=== PATIENT | female | born 1955 | race Caucasian/White ===

== ENCOUNTER → 2017-04-19 | Outpatient (REF) | LOC: ZLAB.WCH 20:31 | DX: Z01.89 Encounter for other specified special examinations (principal) ==

== ENCOUNTER → 2018-07-22 | Outpatient (REF) ==
[2018-07-22 17:16] LABS: THYROID STIMULATING HORMONE 3.31 uIU/mL (0.465-4.680)
== END ==
LOC: ZLAB.WCH 16:21
PROVIDERS: Physician Assistant
DX: Z01.89 Encounter for other specified special examinations (principal)

== ENCOUNTER → 2018-10-19 | Outpatient (REF) | LOC: ZLAB.WCH 09:39 | DX: Z01.89 Encounter for other specified special examinations (principal) ==

== ENCOUNTER 2020-12-12 15:23 | Inpatient (IN) | payer MEDICARE ==
[2020-12-12] VITALS (311 sets, daily range): BP systolic 90–100; BP diastolic 51–61; PULSE 83–89; TEMP 98.4–98.6; O2SAT 88–98
[~2020-12-12] VITALS: Ht 154.9 cm; Wt 74.6 kg
[2020-12-12 16:22] LABS: ARTERIAL BLD GAS O2 SATURATION 89.5 % (92-100); ARTERIAL BLD GAS TCO2 CT 15.6; ARTERIAL BLOOD GAS BASE EXCESS -8.9 (-2-2); ARTERIAL BLOOD GAS HCO3 14.8 meq/L (22-26); ARTERIAL BLOOD GAS PCO2 25.8 mmHg (35-45); ARTERIAL BLOOD GAS PO2 59.7 mmHg (80-100); ARTERIAL BLOOD GAS pH 7.38 (7.35-7.45)
[2020-12-12 16:54] LABS: HEMOGLOBIN 10.6 g/dl (12.5-16.0); MEAN CELL VOLUME 90 fl (80.0-100.0); MEAN CORPUSCULAR HEMOGLOBIN 30 pg (27.0-31.0); MEAN CORPUSCULAR HGB CONC 33 g/dl (33.0-37.0); MEAN PLATELET VOLUME 11.7 fl (7.4-10.4); PLATELET COUNT 245 K/mm3 (130-400); RED BLOOD COUNT 3.54 M/mm3 (4.10-5.30); REDCELL DISTRIBUTION WIDTH-CV 14.1 % (11.5-14.5)
[2020-12-12 17:24] LABS: HEMATOCRIT 31.7 % (37.0-47.0)
[2020-12-12 17:26] LABS: ALANINE AMINOTRANSFERASE 38 U/L (4-34); ALBUMIN 3.8 gm/dL (3.5-5.0); ALKALINE PHOSPHATASE 53 U/L (50-136); ANION GAP 12 mmol/L (7-16); AST,SGOT 67 U/L (15-37); BILIRUBIN,TOTAL 0.4 mg/dL (0.0-1.0); BLOOD UREA NITROGEN 82 mg/dL (7-17); C-REACTIVE PROTEIN 6.9 mg/dL (0.0-0.9); CARBON DIOXIDE 20 mmol/L (22-30); CHLORIDE 104 mmol/L (98-107); CREATININE, serum 1.38 (0.52-1.25); GLUCOSE 266 mg/dL (74-106); LACTATE DEHYDROGENASE 1734 U/L (313-618); POTASSIUM 3.8 mmol/L (3.4-5.0); SODIUM 135 mmol/L (137-145); TOTAL PROTEIN 7.4 gm/dL (6.4-8.2)
[2020-12-12 17:54] LABS: BAND 7 % (0-10); LYMPHOCYTE 13 % (20.0-51.0); NEUTROPHILS 76 % (42.0-75.2)
[2020-12-12 17:55] LABS: PLATELET ESTIMATE NORMAL (NORMAL)
[2020-12-12 18:03] LABS: TROPONIN-I < 0.012 ng/mL (0.000-0.035)
--- NOTE | 2020-12-12 19:25 | NUR ---
Received report from SIMA Harrison. Patient resting comfortably in bed. Continues to wear AirVo, receiving 60L, 84%; tolerating well. Christy reports having consulted Dr. Cook for central line placement. Per Christy, Dr. Cook does not feel comfortable placing central line at this time due to prior lovenox administration. All vitals within normal limits. Patient denies any pain or discomfort. Bed in lowest position, call light within in reach, and all alarms are on. No further needs noted.
--- NOTE | 2020-12-12 19:43 | NUR ---
Report given to SIMA Lozada.
--- NOTE | 2020-12-12 19:44 | NUR ---
Report given to SIMA Rios.
[2020-12-12 20:07] LABS: ARTERIAL BLD GAS O2 SATURATION 95.3 % (92-100); ARTERIAL BLD GAS TCO2 CT 18.1; ARTERIAL BLOOD GAS BASE EXCESS -7.8 (-2-2); ARTERIAL BLOOD GAS HCO3 17.1 meq/L (22-26); ARTERIAL BLOOD GAS PCO2 32.5 mmHg (35-45); ARTERIAL BLOOD GAS PO2 84.2 mmHg (80-100); ARTERIAL BLOOD GAS pH 7.34 (7.35-7.45)
[2020-12-13] VITALS (598 sets, daily range): BP systolic 82–117; BP diastolic 48–79; PULSE 80–95; TEMP 98–98.4; O2SAT 85–97
--- NOTE | 2020-12-13 02:21 | NUR ---
This RN contacted Ladan, hospitalistmercy after 0000 regarding patient's downward trending SBPs. Patient's SBPs ranging 70s to low 80s, despite waking patient and adjusting BP cuff. Received orders to administer 1000mL NS over two hours at 500mL/hr. This RN contacted Ladan at approximately 0130 after patient's pressures remained unresponsive to fluids. Received orders to initiate levophed and to confirm plan of care with HORACE. HORACE agrees with levophed administration; requesting second consult to surgery for central line placement now that patient is requiring pressers. Forwarded this information to Harley, who agreed. First call to Dr. Cook at 0207, with no answer. Second call placed at 0228. Dr. Cook stated due to Lovenox administration during prior shift, he would prefer to place a femoral line should bleeding occur and pressure need be applied. Requests I clarify a femoral line with Ladan. Ladan contacted at 0230; she would prefer to avoid a femoral line due to risk of infection. To notify HORACE of plan of care. Dr. Cook notified of decision to use peripheral line until PICC can be placed this morning at 0233. HORACE notified at 0235. Will monitor peripheral site closely.
[2020-12-13 05:14] LABS: HEMOGLOBIN 10.2 g/dl (12.5-16.0); MEAN CELL VOLUME 89 fl (80.0-100.0); MEAN CORPUSCULAR HEMOGLOBIN 30 pg (27.0-31.0); MEAN CORPUSCULAR HGB CONC 33 g/dl (33.0-37.0); MEAN PLATELET VOLUME 11.4 fl (7.4-10.4); PLATELET COUNT 275 K/mm3 (130-400); RED BLOOD COUNT 3.43 M/mm3 (4.10-5.30); REDCELL DISTRIBUTION WIDTH-CV 14.2 % (11.5-14.5)
[2020-12-13 05:20] LABS: HEMATOCRIT 30.5 % (37.0-47.0)
[2020-12-13 05:25] LABS: CALCIUM 8.5 mg/dL (8.4-10.2); CREATININE, serum 0.96 (0.52-1.25); POTASSIUM 3.9 mmol/L (3.4-5.0)
[2020-12-13 06:02] LABS: BAND 6 % (0-10); LYMPHOCYTE 17 % (20.0-51.0); NEUTROPHILS 75 % (42.0-75.2); PLATELET ESTIMATE NORMAL (NORMAL)
--- NOTE | 2020-12-13 07:00 | NUR ---
PT ON AIRVO SATING LOW 90'S. PT RESTING COMFORTABLE. VSS. PT ON LOW DOSE LEVO. WILL CONTINUE TO MONTIOR.
--- NOTE | 2020-12-13 08:43 | NUR ---
PT'S MAXWELL CALLED AND UPDATED ON PT.
[2020-12-13 08:55] LABS: PATHOLOGY DIFF REVIEW OK
--- NOTE | 2020-12-13 10:28 | NUR ---
CALLED THIS RN AND PATIENT DISCUSSED. CHARLES RN WITH CALLED AND STATED THEY ARE AWARE OF CONSULT.
[2020-12-13 16:21] LABS: AMORPHOUS CRYSTAL Present /uL; MUCOUS Present /lpf; PH 5 (5-8); SQUAMOUS EPITHELIAL 0-2 /hpf; URINE APPEARANCE Hazy; URINE BACTERIA None Seen /hpf; URINE BILIRUBIN Negative (NEGATIVE); URINE BLOOD 1+ (NEGATIVE); URINE COLOR Yellow; URINE GLUCOSE 1+ (NEGATIVE); URINE KETONE Trace (NEGATIVE); URINE LEUKOCYTE ESTERASE Negative (NEGATIVE); URINE NITRATE Negative (NEGATIVE); URINE PROTEIN(semi-quant) 2+ (NEGATIVE); URINE UROBILINOGEN Negative (NEGATIVE)
--- NOTE | 2020-12-13 16:25 | NUR ---
The patient is COVID positive. SW attempted to contact the patient's room phone to discuss discharge plan. The patient did not answer. SW contacted the patient's , Myron (ph#[phone]), to complete intake. The patient lives in [place] with Myron. Myron reports that the patient is independent with ADLs and does not have any DME. The patient's primary care provider is LEILA Sanders and she receives her medications from [facility]. Myron reports no difficulties obtaining her meds. Myron reports that he does not believe that the patient has a DPOA-HC. The patient is currently on 60 liters of oxygen, via high flow cannula. SW to continue to follow.
[2020-12-13 16:29] LABS: COLLECTION METHOD CATHETER
[2020-12-14] VITALS (1046 sets, daily range): BP systolic 84–127; BP diastolic 55–78; PULSE 69–98; TEMP 98–98.5; O2SAT 73–100
[2020-12-14 04:04] LABS: MEAN CELL VOLUME 88 fl (80.0-100.0); MEAN CORPUSCULAR HGB CONC 33 g/dl (33.0-37.0); MEAN PLATELET VOLUME 11.4 fl (7.4-10.4); PLATELET COUNT 319 K/mm3 (130-400); REDCELL DISTRIBUTION WIDTH-CV 14.3 % (11.5-14.5)
[2020-12-14 04:11] LABS: HEMATOCRIT 28.2 % (37.0-47.0); HEMOGLOBIN 9.4 g/dl (12.5-16.0); MEAN CORPUSCULAR HEMOGLOBIN 29 pg (27.0-31.0)
[2020-12-14 04:22] LABS: CALCIUM 9.2 mg/dL (8.4-10.2); CREATININE, serum 0.82 (0.52-1.25); POTASSIUM 3.4 mmol/L (3.4-5.0)
[2020-12-14 05:21] LABS: LYMPHOCYTE 13 % (20.0-51.0); NEUTROPHILS 80 % (42.0-75.2); PLATELET ESTIMATE NORMAL (NORMAL)
[2020-12-14 05:49] LABS: ARTERIAL BLD GAS O2 SATURATION 86.7 % (92-100); ARTERIAL BLD GAS TCO2 CT 23.3; ARTERIAL BLOOD GAS BASE EXCESS -0.7 (-2-2); ARTERIAL BLOOD GAS HCO3 22.3 meq/L (22-26); ARTERIAL BLOOD GAS PCO2 30.7 mmHg (35-45); ARTERIAL BLOOD GAS PO2 49.3 mmHg (80-100); ARTERIAL BLOOD GAS pH 7.48 (7.35-7.45)
--- NOTE | 2020-12-14 07:00 | NUR ---
PT RESTING IN BED ON AIRVO. PT'S VSS. WILL CONTINUE TO MONITOR.
[2020-12-14] MEDS ORDERED: LOPID 600M600 MG/TAB PO (15:42)
[2020-12-14] MEDS ORDERED: CRESTOR20 MG PO (15:43)
[2020-12-14] MEDS ORDERED: LOTENSIN20 MG PO (15:44)
[2020-12-14] MEDS ORDERED: GLUCOPHAGE500 MG/TAB PO (15:44)
[2020-12-14] MEDS ORDERED: HCTZ 25MG TAB25 MG PO (15:45)
[2020-12-14] MEDS ORDERED: LOPRESSOR 550 MG/TAB PO (15:45)
[2020-12-14 15:47] LABS: ARTERIAL BLD GAS O2 SATURATION 98.5 % (92-100); ARTERIAL BLD GAS TCO2 CT 23.4; ARTERIAL BLOOD GAS BASE EXCESS -1.3 (-2-2); ARTERIAL BLOOD GAS HCO3 22.4 meq/L (22-26); ARTERIAL BLOOD GAS PCO2 33.9 mmHg (35-45); ARTERIAL BLOOD GAS pH 7.44 (7.35-7.45)
[2020-12-14 15:48] LABS: ARTERIAL BLOOD GAS PO2 143.6 mmHg (80-100)
[2020-12-15] VITALS (997 sets, daily range): BP systolic 123–140; BP diastolic 75–81; PULSE 78–94; TEMP 97.5–98.4; O2SAT 58–100
[2020-12-15 04:01] LABS: MEAN CELL VOLUME 89 fl (80.0-100.0); MEAN CORPUSCULAR HGB CONC 33 g/dl (33.0-37.0); MEAN PLATELET VOLUME 11.1 fl (7.4-10.4); PLATELET COUNT 359 K/mm3 (130-400); RED BLOOD COUNT 3.14 M/mm3 (4.10-5.30); REDCELL DISTRIBUTION WIDTH-CV 14.4 % (11.5-14.5)
[2020-12-15 04:06] LABS: HEMOGLOBIN 9.2 g/dl (12.5-16.0); MEAN CORPUSCULAR HEMOGLOBIN 29 pg (27.0-31.0)
[2020-12-15 04:12] LABS: CALCIUM 8.8 mg/dL (8.4-10.2); CREATININE, serum 0.85 (0.52-1.25); POTASSIUM 3.2 mmol/L (3.4-5.0)
[2020-12-15 04:31] LABS: MAGNESIUM 1.6 mg/dL (1.6-2.3)
[2020-12-15 04:37] LABS: BAND 1 % (0-10); LYMPHOCYTE 7 % (20.0-51.0); METAMYELOCYTE 2 % (0-0); MYELOCYTE 1 % (0-0); NEUTROPHILS 85 % (42.0-75.2); PLATELET ESTIMATE NORMAL (NORMAL)
[2020-12-15 06:06] LABS: ARTERIAL BLD GAS O2 SATURATION 97.5 % (92-100); ARTERIAL BLD GAS TCO2 CT 23.6; ARTERIAL BLOOD GAS BASE EXCESS -0.1 (-2-2); ARTERIAL BLOOD GAS HCO3 22.7 meq/L (22-26); ARTERIAL BLOOD GAS PCO2 30.9 mmHg (35-45); ARTERIAL BLOOD GAS PO2 99.1 mmHg (80-100); ARTERIAL BLOOD GAS pH 7.48 (7.35-7.45)
--- NOTE | 2020-12-15 07:00 | NUR ---
PT RESTING WITH BIPAP ON. PTS VSS. WILL CONTINUE TO MONTIOR.
[2020-12-16] VITALS (594 sets, daily range): BP systolic 115–148; BP diastolic 84–93; PULSE 70–102; TEMP 97.5–98.6; O2SAT 61–100
[2020-12-16 04:49] LABS: MEAN CELL VOLUME 90 fl (80.0-100.0); MEAN CORPUSCULAR HGB CONC 33 g/dl (33.0-37.0); MEAN PLATELET VOLUME 10.9 fl (7.4-10.4); PLATELET COUNT 303 K/mm3 (130-400); RED BLOOD COUNT 3.22 M/mm3 (4.10-5.30); REDCELL DISTRIBUTION WIDTH-CV 14.2 % (11.5-14.5)
[2020-12-16 04:56] LABS: HEMATOCRIT 28.9 % (37.0-47.0); HEMOGLOBIN 9.5 g/dl (12.5-16.0); MEAN CORPUSCULAR HEMOGLOBIN 30 pg (27.0-31.0)
[2020-12-16 05:00] LABS: C-REACTIVE PROTEIN 2.6 mg/dL (0.0-0.9); CALCIUM 8.8 mg/dL (8.4-10.2); CREATININE, serum 0.66 (0.52-1.25); POTASSIUM 3.7 mmol/L (3.4-5.0)
[2020-12-16 05:45] LABS: BAND 2 % (0-10); LYMPHOCYTE 10 % (20.0-51.0); MYELOCYTE 1 % (0-0); NEUTROPHILS 82 % (42.0-75.2); PLATELET ESTIMATE NORMAL (NORMAL)
[2020-12-16 06:06] LABS: ARTERIAL BLD GAS O2 SATURATION 98.6 % (92-100); ARTERIAL BLD GAS TCO2 CT 22.6; ARTERIAL BLOOD GAS BASE EXCESS -1.5 (-2-2); ARTERIAL BLOOD GAS HCO3 21.7 meq/L (22-26); ARTERIAL BLOOD GAS PCO2 31.3 mmHg (35-45); ARTERIAL BLOOD GAS pH 7.46 (7.35-7.45)
[2020-12-16 06:10] LABS: ARTERIAL BLOOD GAS PO2 138.3 mmHg (80-100)
--- NOTE | 2020-12-16 15:32 | NUR ---
cemetery worker spoke with Dr Phelps, who had visited with patient about [facility] transfer in the future. Worker contacted patient's spouse, Myron, and per his request, spoke with Marleny #[phone], daughter in law that is a nurse. Worker provided education about [facility] and answered their questions. Worker collaborated with patient's nurse regarding the above information.
--- NOTE | 2020-12-16 18:49 | NUR ---
PT had an uneventful day. PT denied appetite all day did eat some of breakfast, two bites of apple sauce at lunch and attempting to eat dinner at this time. No complaints of pain. Afebrile. Will report to SOFIA GAO.
--- NOTE | 2020-12-16 19:20 | NUR ---
Received report from SIMA Harrison.
--- NOTE | 2020-12-16 19:22 | NUR ---
PT report given to SIMA Lozada.
--- NOTE | 2020-12-16 20:15 | NUR ---
Patient resting quietly in bed. Patient wearing AirVo at this time, tolerating well. Receiving 60L and 80% FiO2. All vitals within normal limits. Patient denies any pain or discomfort; she denies having an appetite or wanting anything to eat or snack on. No further needs noted at this time.
[2020-12-17] VITALS (297 sets, daily range): BP systolic 88–138; BP diastolic 69–85; PULSE 91–108; TEMP 98.3–99.1; O2SAT 67–100
[2020-12-17 05:16] LABS: CALCIUM 8.8 mg/dL (8.4-10.2); CREATININE, serum 0.64 (0.52-1.25); POTASSIUM 3.8 mmol/L (3.4-5.0)
[2020-12-17 05:26] LABS: HEMOGLOBIN 10.2 g/dl (12.5-16.0); MEAN CELL VOLUME 90 fl (80.0-100.0); MEAN CORPUSCULAR HEMOGLOBIN 30 pg (27.0-31.0); MEAN CORPUSCULAR HGB CONC 33 g/dl (33.0-37.0); MEAN PLATELET VOLUME 11.1 fl (7.4-10.4); RED BLOOD COUNT 3.38 M/mm3 (4.10-5.30); REDCELL DISTRIBUTION WIDTH-CV 13.9 % (11.5-14.5)
[2020-12-17 05:33] LABS: HEMATOCRIT 30.5 % (37.0-47.0)
[2020-12-17 05:35] LABS: PLATELET COUNT 173 K/mm3 (130-400)
[2020-12-17 05:48] LABS: ARTERIAL BLD GAS O2 SATURATION 98.8 % (92-100); ARTERIAL BLD GAS TCO2 CT 20.9; ARTERIAL BLOOD GAS BASE EXCESS -1.1 (-2-2); ARTERIAL BLOOD GAS HCO3 20.2 meq/L (22-26); ARTERIAL BLOOD GAS PCO2 24.5 mmHg (35-45); ARTERIAL BLOOD GAS pH 7.53 (7.35-7.45)
[2020-12-17 06:07] LABS: LYMPHOCYTE 10 % (20.0-51.0); NEUTROPHILS 87 % (42.0-75.2); PLATELET ESTIMATE NORMAL (NORMAL)
--- NOTE | 2020-12-17 12:01 | NUR ---
Report given to SIMA Reeves at 1136- PT off floor at 1201. PT transported via wheelchair to room 302. PT able to stand and turn with assist of two. PT is comfortable in bed. Care relinquished at this time.
--- NOTE | 2020-12-17 15:14 | NUR ---
Hand Expansion Envelope Maker contacted Rajesh at [facility] and faxed clinical updates. Rajesh advised he has attempted to contact patient's family and left a message. SW attempted to contact patient by both room phone and cell phone, however patient did not answer.
--- NOTE | 2020-12-17 22:30 | NUR ---
ALERT AND OX4. PT LYING IN BED. DENIES SOA, CHEST PAIN OR DIZZY. DOES GET EXCERTED AND SOA W ACTIVITY. RT UPPER ARM FLUSHED, GOOD BLOOD RETURN PICC. BIPAP AT HS. PM MEDS GIVEN. POC DISCUSSED. NEEDS MET.
[2020-12-18 05:36] VITALS: BP 136/70; PULSE 100; TEMP 98.6
--- NOTE | 2020-12-18 05:52 | NUR ---
PT SLEPT THROUGH THE NIGHT W BIPAP ON WITHOUT INCIDENT. AM LABS DRAWN W PICC. NEEDS MET.
[2020-12-18 06:50] LABS: MEAN CELL VOLUME 90 fl (80.0-100.0); MEAN CORPUSCULAR HEMOGLOBIN 30 pg (27.0-31.0); MEAN CORPUSCULAR HGB CONC 33 g/dl (33.0-37.0); MEAN PLATELET VOLUME 11.6 fl (7.4-10.4); PLATELET COUNT 127 K/mm3 (130-400); RED BLOOD COUNT 3.36 M/mm3 (4.10-5.30); REDCELL DISTRIBUTION WIDTH-CV 13.8 % (11.5-14.5)
[2020-12-18 06:52] LABS: HEMATOCRIT 30.2 % (37.0-47.0)
[2020-12-18 07:03] LABS: CALCIUM 8.8 mg/dL (8.4-10.2); CREATININE, serum 0.67 (0.52-1.25); POTASSIUM 3.7 mmol/L (3.4-5.0)
[2020-12-18 08:15] LABS: LYMPHOCYTE 8 % (20.0-51.0); METAMYELOCYTE 1 % (0-0); NEUTROPHILS 89 % (42.0-75.2); PLATELET ESTIMATE DECREASED (NORMAL)
[2020-12-18 08:16] LABS: HYPOCHROMIA 1+
[2020-12-18 08:30] VITALS: BP 126/78; PULSE 10; TEMP 98.1
--- NOTE | 2020-12-18 08:47 | NUR ---
Pt awake and alert upon entry, dyspnea at rest noted, saturating at 88-91% @ 60 lpm. No C/O pain at this time. Shift assessment complete, left Pt in bed, lowest position, call light in reach.
--- NOTE | 2020-12-18 11:17 | NUR ---
During clinical rounds, Dr. Glover advised that he spoke with patient about discharge to [facility] and she was in agreement. Discharge Plan: [facility]
[2020-12-18 13:21] VITALS: BP 142/72; PULSE 94; TEMP 97.8
--- NOTE | 2020-12-18 13:27 | NUR ---
The patient is Covid-19 positive. She transferred to this floor from the ICU floor. Fish And Wildlife Warden attempted to contact the patient via phone, left message. SW contacted the patient's , Myron to introduce oneself and discuss the discharge plan. *Discharge disposition: [facility]
[2020-12-18 17:30] VITALS: BP 137/85; PULSE 98; TEMP 98
[2020-12-18 20:40] VITALS: BP 118/66; PULSE 82; TEMP 98.2
--- NOTE | 2020-12-18 23:46 | NUR ---
ALERT AND OX4. HAVING BACK PAIN TONIGHT RATING 8/10. TRAMDOL GIVEN ALONG W PM MEDS. PICC LINE FLUSHED W GOOD BLOOD RETURN. VITALS, BLOOD SUGAR. RT CALLED FOR BIPAP. FRESH ICE WATER, CELL PHONE APPLICATION TECHNICIAN AND UPDATE DAUGHTER ON PT STATUS. POC DISCUSSED, CALL LIGHT WI REACH. NEEDS MET.
[2020-12-19] VITALS (7 sets, daily range): BP systolic 123–137; BP diastolic 67–79; PULSE 77–95; TEMP 97.9–98.4
[2020-12-19 06:21] LABS: MEAN CELL VOLUME 90 fl (80.0-100.0); MEAN CORPUSCULAR HGB CONC 33 g/dl (33.0-37.0); MEAN PLATELET VOLUME 12.3 fl (7.4-10.4); PLATELET COUNT 102 K/mm3 (130-400); RED BLOOD COUNT 3.14 M/mm3 (4.10-5.30); REDCELL DISTRIBUTION WIDTH-CV 13.8 % (11.5-14.5)
[2020-12-19 06:28] LABS: HEMATOCRIT 28.1 % (37.0-47.0); HEMOGLOBIN 9.3 g/dl (12.5-16.0); MEAN CORPUSCULAR HEMOGLOBIN 30 pg (27.0-31.0)
[2020-12-19 06:31] LABS: CALCIUM 8.3 mg/dL (8.4-10.2); CREATININE, serum 0.6 (0.52-1.25); POTASSIUM 3.9 mmol/L (3.4-5.0)
[2020-12-19 06:57] LABS: BAND 7 % (0-10); LYMPHOCYTE 3 % (20.0-51.0); NEUTROPHILS 84 % (42.0-75.2)
[2020-12-19 07:00] LABS: PLATELET ESTIMATE NORMAL (NORMAL)
--- NOTE | 2020-12-19 09:56 | NUR ---
Pt awake upon entry, currently on BiPAP with respiratory in room, Medications given with RT assist. Shift assessments complete, left Pt in bed, call light in reach.
[2020-12-19 12:11] LABS: ARTERIAL BLOOD GAS BASE EXCESS 2.6 (-2-2); ARTERIAL BLOOD GAS HCO3 25.9 meq/L (22-26); ARTERIAL BLOOD GAS PCO2 35.7 mmHg (35-45); ARTERIAL BLOOD GAS PO2 65.9 mmHg (80-100); ARTERIAL BLOOD GAS pH 7.48 (7.35-7.45)
--- NOTE | 2020-12-19 15:17 | NUR ---
Rajesh with [facility] was hospital to visit. He discussed patient care with the patient's nurse. *Discharge disposition: [facility]
[2020-12-19 18:50] LABS: ARTERIAL BLD GAS O2 SATURATION 96.6 % (92-100); ARTERIAL BLOOD GAS BASE EXCESS 0.8 (-2-2); ARTERIAL BLOOD GAS PCO2 33.2 mmHg (35-45); ARTERIAL BLOOD GAS PO2 84.5 mmHg (80-100); ARTERIAL BLOOD GAS pH 7.48 (7.35-7.45)
--- NOTE | 2020-12-19 19:36 | NUR ---
DARIEL DEE NOTIFED OF RECENT ABG, HAD ALREADY REVIEWED AND IMPROVED WANTS TO KEEP HER ON BIPAP ALL NIGHT. NOTED
--- NOTE | 2020-12-19 22:00 | NUR ---
ALERT AND OX4. BIPAP ON CONTINUOUS OVERNIGHT. PM MED GIVEN TRAMDOL AND IV MED. PICC LINE FLUSHED GOOD BLOOD RETURN. O2 SAT 95-96%. VSS, BLOOD SUGAR TX. ICE WATER REFILL. CALL LIGHT WI REACH. NEEDS MET .
--- NOTE | 2020-12-19 22:54 | NUR ---
GAVE PT DAUGHTER UPDATE ON PT STATUS.
--- NOTE | 2020-12-20 02:06 | NUR ---
Pt resting quietly in bed w eyes closed, remains on bipap resp even and unlabored.
[2020-12-20 03:29] VITALS: BP 133/75; PULSE 82; TEMP 97.5
--- NOTE | 2020-12-20 05:55 | NUR ---
RESTED THROUGH THE NIGHT ON BIPAP WITHOUT INCIDENT. DENIES FEELING SOA. VSS. BLOOD SUGARS OBTAINED PER ORDER. PICC LINE LAB DRAW THIS AM.
[2020-12-20 07:00] LABS: MEAN CELL VOLUME 92 fl (80.0-100.0); MEAN CORPUSCULAR HGB CONC 32 g/dl (33.0-37.0); MEAN PLATELET VOLUME 12.7 fl (7.4-10.4); PLATELET COUNT 104 K/mm3 (130-400); RED BLOOD COUNT 3.26 M/mm3 (4.10-5.30); REDCELL DISTRIBUTION WIDTH-CV 13.7 % (11.5-14.5)
[2020-12-20 07:13] LABS: HEMOGLOBIN 9.7 g/dl (12.5-16.0); MEAN CORPUSCULAR HEMOGLOBIN 30 pg (27.0-31.0)
[2020-12-20 07:18] LABS: CALCIUM 8.7 mg/dL (8.4-10.2); CREATININE, serum 0.63 (0.52-1.25); POTASSIUM 4.5 mmol/L (3.4-5.0)
[2020-12-20 08:21] LABS: BAND 1 % (0-10); BASOPHIL 1 % (0-2); LYMPHOCYTE 3 % (20.0-51.0); METAMYELOCYTE 1 % (0-0); NEUTROPHILS 92 % (42.0-75.2); PLATELET ESTIMATE DECREASED (NORMAL)
[2020-12-20 08:54] VITALS: BP 140/73; PULSE 90; TEMP 97.7
--- NOTE | 2020-12-20 09:26 | NUR ---
Pt awake upon entry, currently on BiPAP. no C/O pain at this time. Shift assessment complete, left Pt call light in reach.
[2020-12-20 12:23] VITALS: BP 145/76; PULSE 87; TEMP 97.8
[2020-12-20 17:52] VITALS: BP 146/77; PULSE 92; TEMP 98.3
[2020-12-20 20:13] VITALS: BP 135/63; PULSE 100; TEMP 99
--- NOTE | 2020-12-20 21:00 | NUR ---
PATIENT IS RESTING IN THE ROOM.AOX4.ON AIRVO 60L.REPORTED OF PAIN.MEDS GIVEN PER ORDER.REQUESTED FOR ICE WATER SAME GIVEN.NO OTHER NEEDS AT THIS TIME.
[2020-12-20 23:46] VITALS: BP 134/68; PULSE 94; TEMP 98.3
[2020-12-21] VITALS (161 sets, daily range): BP systolic 97–155; BP diastolic 75–90; PULSE 86–116; TEMP 97.7–98.9; O2SAT 45–100
[2020-12-21 05:49] LABS: ARTERIAL BLD GAS O2 SATURATION 91.8 % (92-100); ARTERIAL BLD GAS TCO2 CT 25.3; ARTERIAL BLOOD GAS BASE EXCESS 0.1 (-2-2); ARTERIAL BLOOD GAS HCO3 24.2 meq/L (22-26); ARTERIAL BLOOD GAS PO2 63.3 mmHg (80-100); ARTERIAL BLOOD GAS pH 7.43 (7.35-7.45)
--- NOTE | 2020-12-21 06:23 | NUR ---
PATIENT HAD A RESTFUL NIGHT ONN BIPAP.O2 SATS ABOVE 90%.DENIES PAIN.NO OTHER NEEDS AT THIS TIME.
[2020-12-21 07:33] LABS: CALCIUM 8.6 mg/dL (8.4-10.2); CREATININE, serum 0.61 (0.52-1.25); POTASSIUM 4.2 mmol/L (3.4-5.0)
[2020-12-21 07:35] LABS: HEMOGLOBIN 10.4 g/dl (12.5-16.0); MEAN CELL VOLUME 91 fl (80.0-100.0); MEAN CORPUSCULAR HEMOGLOBIN 29 pg (27.0-31.0); MEAN CORPUSCULAR HGB CONC 32 g/dl (33.0-37.0); PLATELET COUNT 117 K/mm3 (130-400); RED BLOOD COUNT 3.55 M/mm3 (4.10-5.30); REDCELL DISTRIBUTION WIDTH-CV 13.4 % (11.5-14.5)
[2020-12-21 07:37] LABS: HEMATOCRIT 32.4 % (37.0-47.0)
--- NOTE | 2020-12-21 09:34 | NUR ---
PATIENT ASSESSMENT COMPLETED. SHE HAS A VERY RUNNY NOSE AND SOME SHORTNESS OF BREATH AT REST. [place] INTACT AND NO URGE TO HAVE A BM. AIRVO INPLACE AND TOLERATING. SHE IS ORDERING BREAKFAST NOW
[2020-12-21 10:08] LABS: BAND 1 % (0-10); LYMPHOCYTE 2 % (20.0-51.0); METAMYELOCYTE 1 % (0-0); NEUTROPHILS 95 % (42.0-75.2)
[2020-12-21 10:10] LABS: ANISOCYTOSIS 1+; PLATELET ESTIMATE DECREASED (NORMAL)
[2020-12-21 10:11] LABS: POLYCHROMASIA 1+
--- NOTE | 2020-12-21 18:08 | NUR ---
PATIENT CALLS OUT IN TERRIBLE LOW BACK PAIN. SHE IS REPOSITIONED IN THE BED AND ULTRAM X1 PROVIDED PO. I WILL CALL TO SEE IF THERE IS SOMETHING ELSE TO TRY ALSO. HEAT PAD WILL BE GIVEN
--- NOTE | 2020-12-21 19:18 | NUR ---
NOTIFIED CHARLI EASLEY HOSPITALIST OF AN UPDATE ON PATIENT. SHE IS ANXIOUS AND O2 SAT RANGING FROM 85-88% SHE DID GET UP TO 90% FOR A BRIEF MOMENT THEN WENT BACK DOWN. HEAD OF BED ALL THE WAY UP RT IS NOTIFIED AND HAS ARRIVED. HR IN 110'S. SHE STATES THAT SHE JUST CAN'T BREATH, 1MG IVP MORPHINE WAS GIVEN PER ORDERS.
--- NOTE | 2020-12-21 19:38 | NUR ---
PATIENT WAS GIVEN ANOTHER 1 MG IVP MORPHINE AT THIS TIME PER CHARLI ORDERS
--- NOTE | 2020-12-21 19:40 | NUR ---
Patient was having shortness of breath. She was at airvo during shift change and SPO2 at 85%. Yulissa of RT was called and adjusted the settings of airvo but patient still having difficulty of breathing. Bipap was placed and Ines DEE came in to see the patient. She is still complaining of low back pain and Tia GAO gave another dose of Morphine. Ines ordered to have the patient trasnferred to ICU for further monitoring.
--- NOTE | 2020-12-21 20:17 | NUR ---
Report given to Hai GAO.
--- NOTE | 2020-12-21 20:50 | NUR ---
Pt arrived to ICU room 4 via bed with divya Reynolds RN. Pt transferred from the floor bed to the ICU bed with the assistance of 3. Attempted to orient pt to room but she is visibly in distress. BiPAP in place. LEILA Chacon, notified of arrival to ICU. Call light within reach.
--- NOTE | 2020-12-21 21:05 | NUR ---
Patient transferred to ICU.
[2020-12-22] VITALS (210 sets, daily range): BP systolic 52–103; BP diastolic 25–80; PULSE 72–104; TEMP 97.5; O2SAT 30–100
--- NOTE | 2020-12-22 03:00 | NUR ---
ATTEMPTED; UNABLE TO OBTAIN ABG SPECIMEN AFTER VENTILAROR WAS APPLIED TO PT. BPs NOT STABLE WELL.
--- NOTE | 2020-12-22 05:03 | NUR ---
Contacted [facility] and spoke with Nica. Patient is not a candidate for donation at this time due to Covid-19. Referral #[id number]
--- NOTE | 2020-12-22 05:31 | NUR ---
Contacted [facility] [employer] in [place], [place] per family request. ([phone])
--- NOTE | 2020-12-22 06:13 | NUR ---
0000 - PT BP CUFF READ 52/36. ENTERED ROOM TO RE-CYCLE BP. 0010 - BP 87/28. CONTACTED LEILA AUGUSTIN, TO REPORT LOW BP. ORDER FOR PHENYLEPHERINE RECEIVED. 0100 - PT BEGAN TO DESAT ON THE MONITOR. UPON ENTERING ROOM PT HAS A GOOD WAVEFORM AND IS READING 74%. REPOSIIONED IN BED WITH NO IMPROVEMENT. 0104 - LEILA AUGUSTIN, CALLED AND UPDATED OF SITUATION AND REQUESTED SHE COME TO BEDSIDE IMMEDIATELY. 0105 - CALLED ÁNGEL JOAQUIN, AND NOTIFIED HER OF THE SITUATION AND REQUESTED SHE COME TO BEDSIDE IMMEDIATELY. 0107 - STARTED TO BAG PT. 0110 - DR. CONTRERAS AT BEDSIDE TO PREPARE FOR INTUABTION. 0135 - PT INTUBATION COMPLETE AND CONFIRMED WITH COLOR CHANGE INDICATOR AND CXR. 0154 - PT HR BEGINS TO FAHEEM INTO THE 50'S AND PT LOSES PULSE. COMPRESSIONS INITIATED. 0156 - EPINEPHERINE GIVEN. 0159 - PULSE CHECK. EPINEPHERINE GIVEN. 0201 - PULSE CHECK. 0202 - EPINEPHERINE GIVEN. 0203 - PULSE CHECK. 0204 - NEEDLE DECOMPRESSION PERFORMED BY DR. CONTRERAS. 0206 - PULSE CHECK. EPINEPHERINE GIVEN. 0208 - PULSE CHECK. 0209 - BICARBONATE GIVEN. 0210 - PULSE CHECK. EPINEPHERINE GIVEN. 0212 - PULSE CHECK. PULSES NOW PALPABLE. 0215 - PHENYLEPHERINE STARTED AT THIS TIME. 0216 - DR. EASTMAN ARRIVES AT BEDSIDE TO PLACE CHEST TUBE. AFTER PLACEMENT PURULENT DRAINAGE COMES FROM TUBE. TUBE CONNECTED TO WATER SEAL. - THROUGHOUT THIS TIME THE PT HAS DIFFICULTY BEING VENTILATED VIA MECHANICAL VENTILATION. SHE IS INTERMITTENTLY SWITCHED FROM VENT TO BEING BAGGED. 0315 - PT BP 54/31. ORDER FOR LEVOPHED RECEIVED AND INITIATED. 0330 - PT FAMILY MEMBERS ARRIVE. LEILA AUGUSTIN, LEAVES ROOM TO SPEAK WITH THEM. 0345 - PT CLEANED AND PLACED IN HYPOTHERMIA BLANKET. TEMP QUINTANA PLACED. RECTAL TEMP PROBE PLACE. 0415 - FAMILY MEMBERS DECIDE TO WITHDRAW CARES AND EXTUBATE PT. 0420 - PT EXTUBATED. MORPHINE ADMINISTERED AT THIS TIME. [id number] AT BEDSIDE. 0422 - MORPHINE ADMINISTERED AT THIS TIME. 0425 - TIME OF CALLED BY LEILA AUGUSTIN. 0430 - BODY CLEANED AND LINES REMOVED. FAMILY MEMBERS AT BEDSIDE TO SAY GOODBYE.
[2020-12-22 07:22] LABS: ARTERIAL BLD GAS O2 SATURATION 90.3 % (92-100); ARTERIAL BLOOD GAS BASE EXCESS -7.4 (-2-2); ARTERIAL BLOOD GAS HCO3 18.6 meq/L (22-26); ARTERIAL BLOOD GAS PCO2 39.2 mmHg (35-45); ARTERIAL BLOOD GAS PO2 67.7 mmHg (80-100); ARTERIAL BLOOD GAS pH 7.29 (7.35-7.45)
--- NOTE | 2020-12-23 10:46 | NUR ---
The patient on 12/22.
== END 2020-12-22 07:45 | disposition expired | DRG 208 ==
LOC: ICU 15:23 → MEDICAL 12-17 12:33 → ICU 12-21 19:42
PROVIDERS: Internal Medicine Pulmonary Disease; Student in an Organized Health Care Education/Training Program; ADMIT Student in an Organized Health Care Education/Training Program
PROC: XW033E5 Introduction of Remdesivir Anti-infective into Peripheral Vein, Percutaneous Approach, New Technology Group 5 (ICD-10-PCS; 2020-12-12)
PROC: 02HV33Z Insertion of Infusion Device into Superior Vena Cava, Percutaneous Approach (ICD-10-PCS; 2020-12-13)
PROC: 5A1935Z Respiratory Ventilation, Less than 24 Consecutive Hours (ICD-10-PCS; principal; 2020-12-22)
PROC: 0BH17EZ Insertion of Endotracheal Airway into Trachea, Via Natural or Artificial Opening (ICD-10-PCS; 2020-12-22)
PROC: 0W9930Z Drainage of Right Pleural Cavity with Drainage Device, Percutaneous Approach (ICD-10-PCS; 2020-12-22)
DX: U07.1 COVID-19 (principal); J96.01 Acute respiratory failure with hypoxia; J12.82 Pneumonia due to coronavirus disease 2019; J93.9 Pneumothorax, unspecified; N17.9 Acute kidney failure, unspecified; E87.2 Acidosis; Z66 Do not resuscitate; Z51.5 Encounter for palliative care; E66.01 Morbid (severe) obesity due to excess calories; R19.7 Diarrhea, unspecified; R94.5 Abnormal results of liver function studies; E11.9 Type 2 diabetes mellitus without complications; I10 Essential (primary) hypertension; E87.6 Hypokalemia; I46.9 Cardiac arrest, cause unspecified; E78.5 Hyperlipidemia, unspecified; I95.9 Hypotension, unspecified; E86.0 Dehydration; D64.9 Anemia, unspecified; Z79.84 Long term (current) use of oral hypoglycemic drugs
CPT/HCPCS: 99223-AI; 99232-AI; 99233-AI; C1751; J0171; J0330; J0696; J1100; J1650; J1815; J1885; J2270; J2370; J2405; J3480; J7030; J7050; J7060; J7120; J8540; Q0249; Q9967